=== PATIENT | female | born 1960 | race Caucasian/White ===

== ENCOUNTER 2021-11-29 08:00 | Outpatient (CLI) | payer OTHER | END 2021-11-29 23:59 | LOC: LAB.N 08:00 | PROVIDERS: ATTEND Nurse Practitioner | DX: U07.1 COVID-19 (principal) ==

== ENCOUNTER 2024-06-20 12:48 | Outpatient (CLI) | payer OTHER ==
--- NOTE | 2024-06-20 13:39 | Sleep Patient Instructions ---
Sleep Center Visit Summary - Patient Visit Information Reason for Visit: Initial consult for evaluation of sleep disordered breathing and other sleep issues. - Patient Instructions Instructions Attached: Sleep Study Additional Instructions: You will be completing a sleep study, either an in-lab polysomnography (PSG) or home sleep study (HST). You will follow-up in the sleep care office after the sleep study is completed to hear the results and talk about therapy, if needed. You will be called by our office staff to schedule this appointment, but you may contact us with any questions. - Clinic Information Contact: [facility] [address] [place] [address] [email or web address] T: [phone]
--- NOTE | 2024-06-20 13:45 | SLEEP CARE CONSULTATION ---
Information from patient questionnaire entered by Soco Begum. I have reviewed and concur with the information entered by Soco Begum. This document represents the service I personally performed and the decisions made by me, Daniella Simental ARNP. History of Present Illness Service Date and Time: 06/20/2024 1248 Reason for Visit: New patient Chief Complaint: reports: Insomnia, Unrefreshed sleep, Snoring, Excessive daytime sleepiness, Observed pauses in breathing, Fatigue, Frequent awakenings at night Date of Onset: UNKNOWN Usual bedtime: 7138-2541 Time it takes to fall asleep: 1-2HRS Snores at night: Yes Observed to quit breathing while asleep: Yes Sleeps alone due to snoring: No Number of times waking at night: 2-3 Reasons for waking at night: reports: Gasping for air (sensation that she stopped breathing), Pain (shoulder), Other (STOP BREATHING, UNKNOWN). denies: Choking Toss, Turn, or Twitch while sleeping: Yes Recalls having dreams: No Usually gets out of bed at: VARIES Feels refreshed in the morning: No Morning headache: No Sleepy or fatigued during the day: Yes Ever fallen asleep while driving: No Takes day naps: Yes (closing eyes, not really getting to deep sleep mode; "cat nap") Dreams during day naps: No Prior sleep studies: No Additional HPI information: I had the pleasure of seeing FELIPA GLYNN today regarding the possibility of her having a sleep disorder. Her current complaints are excessive daytime sleepiness, fatigue, frequent night awakenings, observed pauses in breathing, snoring and unrefreshed sleep. She thinks her symptoms started when in the [place], she was a [place]. Her has told her that she snores and stops breathing. She has also heard her choking in her sleep. She says she cannot sleep in complete darkness, needs a "background". She says she feels like she "stops breathing" when she is trying to fall asleep. She has been told that she stopped breathing, choking and coughing in sleep when she was give morphine after a breast reduction surgery. She does have difficulty falling asleep, can be up to 1-2 hours. She will wake up 2-3 times in the night and sometimes cannot fall back to sleep. - Parasomnia Symptoms Ever been unable to move upon waking from sleep: Yes (not often) Walks in sleep: No Talks in sleep: No Ever acted out dreams in sleep: No Ever felt weak in the knees when startled or emotional: Yes Bothered by creepy, crawly, restless sensations in legs: No Problems with memory or concentration: Yes Subjective Initial Rhine Sleepiness Scale score: 15 (06/20/24) Past Medical History Past Medical History: reports: Claustrophobia, Arthritis, Anxiety, Other (STRESS) Social History The patient's occupation is a RE. Patient is Single and lives in . Have you smoked in the past 12 months: No Cigarettes per day (20/pack): 20 Years of smokin Quit date: 2001 Smoking Pack Years: 10.0 Alcohol use: Yes Alcohol amount and frequency: 1-3 WEEKLY Caffeine use: Yes Caffeine amount and frequency: 1-2 DAILY Family History Family history of sleep disordered breathing: Yes Family Hx Sleep Apnea: Mother: Snoring, Sleep apnea - Treated Allergies and Home Medications Known drug allergies: Yes ( LISTED) Drug allergies reviewed: Yes Home medication list reviewed: Yes (as listed) Allergy and home medication list: Allergies codeine Allergy (Verified 06/20/24 12:57) morphine Allergy (Verified 06/20/24 12:57) Penicillins Allergy (Verified 06/20/24 12:57) Home Medications Medication Instructions Recorded Confirmed Last Taken Type DULoxetine [Cymbalta] See Rx Instructions .ROUTE .COMPLEX 06/20/24 06/20/24 Unknown History Review of Systems Weight gain over past 5 years: 15 Cardiovascular: reports: palpitations. denies: high blood pressure Respiratory: reports: other (STOP BREATHING) Gastrointestinal: reports: heartburn Neurological: reports: headaches, head trauma Psychiatric: reports: anxiety, claustrophobia Ear/Nose/Throat: denies: tonsillectomy, wisdom teeth removed Endocrine: reports: sluggishness Musculoskeletal: reports: joint pain, neck pain, back pain, joint swelling, other (SHOULDER AND KNEE PAIN) Physical Exam Vital signs obtained and entered by: SOCO Boykin MA Blood Pressure: 126/77 (RIGHT ARM) Cuff size: long Heart Rate: 88 O2 Saturation: 100 Height: 5 ft 3 in Weight: 178 lb 3.2 oz Body Mass Index: 31.5 BMI Classification: Obese Neck circumference: 15.5 Nostrils: patent to airflow Mouth and throat: narrow oropharynx Soft palate: long Hard palate: normal Uvula: edematous Tongue: enlarged in size with teeth flores on lateral edges Tonsils: 1+ Neck: normal w/o lymphadenopathy or thyromegaly Heart: regular rate and rhythm Lungs: clear bilaterally Impression and Plan 1. Suspected Obstructive Sleep Apnea-Hypopnea Syndrome, as suggested by a history of loud and irregular snoring, observed cessation of breath while asleep, gasping or choking in sleep, frequent awakening during the night, unrefreshed sleep, cognitive impairment, and excessive daytime sleepiness. Narrow oropharynx and obesity are common predisposing factors for obstructive sleep apnea-hypopnea syndrome. I recommend proceeding to polysomnography to confirm the diagnosis and to assess severity. If the patient has significant sleep disordered breathing, a manual CPAP titration study will also be performed to find the optimal treatment pressure. I informed the patient of what the sleep studies involve and after some discussion, obtained agreement to proceed. The pathophysiology of obstructive sleep apnea-hypopnea syndrome was discussed with the patient and health risks of cardiovascular and cerebrovascular disease if not treated. Risks of drowsy driving discussed in detail and patient advised to avoid long distance driving and to lathe puller at the first sign of drowsiness. Patient agreed to plan. * Schedule polysomnography +- manual CPAP titration study and return in 1-2 weeks after the study to discuss result and initiate therapy. * Avoid long distance driving or driving when feeling sleepy. * Avoid alcohol, sedative and muscle relaxant around bedtime. * Attempt to lose weight. * Review instructions provided by trained office staff on how to prepare for the sleep study. * Return for follow-up after sleep study completed. Counseling Topics: Weight loss health impact Plan: PSG and follow up Visit Type: In Office Time Spent with Patient (minutes): 36 Provider Statement: I spent 100% of the Face to Face Visit with the patient with greater than 50% spent counseling the patient and coordination of care.
[2024-06-20 13:53] VITALS: BP 126/77; O2SAT 100
== END 2024-06-20 12:49 | disposition home or self-care (01) ==
LOC: SC 12:48
PROVIDERS: ATTEND Nurse Practitioner Family
DX: R06.83 Snoring (principal); R06.81 Apnea, not elsewhere classified; G47.8 Other sleep disorders; R41.89 Other symptoms and signs involving cognitive functions and awareness; G47.10 Hypersomnia, unspecified; E66.8 Other obesity; Z68.31 Body mass index [BMI] 31.0-31.9, adult
CPT/HCPCS: 99203; 99212

== ENCOUNTER 2024-07-29 20:31 | Outpatient (CLI) | payer OTHER | END 2024-07-29 20:32 | disposition home or self-care (01) | LOC: SC 20:31 | PROVIDERS: ATTEND Nurse Practitioner Family | DX: G47.61 Periodic limb movement disorder (principal) | CPT/HCPCS: 95810 ==